=== PATIENT | female | born 1975 | race Caucasian/White ===

== ENCOUNTER 2017-11-24 17:10 | Emergency (ER) | payer BC, SELFPAY ==
[2017-11-24 18:46] VITALS: BP 90/78; PULSE 68; RESP 18; TEMP 36.8; O2SAT 100; BMI 23.4
--- NOTE | 2017-11-24 18:58 | HMH.EDUTC ---
[facility] [place] Clinical Impression: Upper respiratory virus Disposition: Home, Self-Care Condition on Discharge: Good Instructions: DI for Viral Upper Respiratory Infection -- Adult Additional Instructions: * No sign of bacterial infection. Likely viral. Virus can take 7-14 days to run their course * Monitor Temp. Tylenol every 4 hours as needed no more then 5 times a day or 4000mg in 24 hours and/or ibuprofen every 6 hours as needed no more then 3200mg in 24 hours (as long as your primary care doctor has told you that it is ok to take both) for fever/aches/pain. ER if fever no less than 101 despite tylenol and ibuprofen * Encourage fluids, water, gatorade, powerade, pedialyte if infant/toddler/child * warm salt water gargles * warm fluids * sore throat lozenges * sleep elevated * humidifier/vaporizer * flonase 2 sprays each nostril daily but may take 2-3 days to notice improvement with it. * Mucinex D. Ask your pharmacist for this. * * Your throat swab was sent for culture. Those results are typically sent to your primary care. Be sure to follow up in 2-3 days if no improvement so they can review those results and treat if necessary. If you don't have primary care, I recommend you get one but in the mean time, you will have to return to a walk in clinic. IMMEDIATELY for new or worsening symptoms OR no noticeable improvement over the next 48-72 hours. 911 for difficulty breathing or swallowing. Prescriptions: Fluticasone Propionate [Flonase 50mcg nasal spray 16gm] 2 spr NS DAILY #1 bottle Time of Disposition: 19:32 Medical Decision Making Vital Signs: 11/24/17 18:46 Temperature 98.2 F Temperature Source Temporal Artery Scan Pulse Rate [Brachial] 68 Respiratory Rate 18 Blood Pressure [Right Arm] 90/78 Blood Pressure Mean [Right Arm] 82 Blood Pressure Source [Right Arm] Automatic Cuff Blood Pressure Position [Right Arm] Sitting 02 Sat by Pulse Oximetry 100 Oxygen Delivery Method Room Air - Lab Data Lab results reviewed: Yes: I reviewed the patient's lab results. Lab Results 11/24/17 18:44: Influenza Type A Ag Negative, Influenza Type B Ag Negative - William Inquiry Pt receiving controlled substance: No [facility] [place] - General Stated complaint: head congestion Time Seen by Provider: 11/24/17 18:58 Mode of Arrival: Ambulatory Source of Information: Patient Limitations: No Limitations Description of Symptoms (Recalled from Triage Doc. by RN): SEVERE CONGESTION SINCE THIS MORNING HEENT Symptoms (Recalled from RN notes): Yes Resp Symptoms (Recalled from RN notes): No Skin Symptoms (Recalled from RN notes): No MS Symptoms (Recalled from RN notes): No Functional Status (Recalled from RN notes): NA - History of Present Illness Provider Complaint: c/o nasal congestion and sinus pressure starting yesterday. Nyquil last night helped. Daughter w/ same symptoms x 2-3 days. Denies fever, aches, chills. - Related Data Home Medications Medication Instructions Recorded Confirmed Escitalopram Oxalate [Lexapro] 10 mg PO DAILY 11/24/17 11/24/17 Previous Rx's Medication Instructions Recorded Fluticasone Propionate [Flonase 2 spr NS DAILY #1 bottle 11/24/17 50mcg nasal spray 16gm] Allergies Allergy/AdvReac Type Severity Reaction Status Date / Time No Known Allergies Allergy Verified 11/24/17 17:32 - Worker's Comp Is this a Worker's Comp case?: No [facility] History I have reviewed the patient's past medical history: Yes Medical History: Reports:: Anxiety Other Surgeries: Yes: (x3) - *Social History Alcohol Intake: never - Psychiatric History Expresses thoughts of harming self/others: None Suicide Plan Description: No Plan ROS Obtained: Yes Systems reviewed as appropriate & no additional complaints - Constitutional Constitutional: Denies body ache, Denies chills, Denies fatigue, Denies poor appetite - Eyes Eyes: Denies eye discharge, Denies eye pain - ENT Ears, N
[2017-11-24 19:00] LABS: UTC Influenza A Antigen Negative (Negative); UTC Influenza B Antigen Negative (Negative)
== END 2017-11-24 19:39 | disposition home or self-care (01) ==
PROVIDERS: Emergency Provider Nurse Practitioner Family
DX: J06.9 Acute upper respiratory infection, unspecified (principal); F41.9 Anxiety disorder, unspecified; Z79.899 Other long term (current) drug therapy
CPT/HCPCS: 87804; 99202

== ENCOUNTER 2021-05-29 18:51 | Emergency (ER) | payer BC, SELFPAY ==
[2021-05-29 18:51] VITALS: BP 104/67; PULSE 68; RESP 20; TEMP 37.1; O2SAT 99; BMI 24.4
--- NOTE | 2021-05-29 20:33 | HMH.EDUTC ---
[facility] [place] Impression: Photosensitivity dermatitis Disposition: Home, Self-Care Condition on Discharge: Good Instructions: DI for Cold Sores Additional Instructions: Apply the zovirax cream as directed. Take the steroids and valtrex that was called in by Kaylee today. Take the cephalexin antibiotic as prescribed. Follow up with your primary care doctor. GO TO THE ER FOR ANY WORSENING SYMPTOMS OR CONCERNS Prescriptions: cephALEXin [cephALEXin 500mg capsule] 500 mg PO Q6H 10 Days #40 cap Transmission Status: Received by [facility] Acyclovir [Zovirax] 5 gm TP 5XDAY 4 Days #1 tube Transmission Status: Received by [facility] Referrals: Kaylee Chiu PA [Primary Care Provider] - Time of Disposition: 20:54 Medical Decision Making - Medical Records Medical records reviewed: No: I reviewed the patient's medical records. - William Inquiry Pt receiving controlled substance: No Vital Signs: 05/29/21 18:51 05/29/21 21:10 Temperature 98.8 F 98.8 F Temperature Source Oral Pulse Rate 68 Pulse Rate [Left Radial] 68 Respiratory Rate 20 20 Blood Pressure 104/67 L Blood Pressure [Right Arm] 104/67 L Blood Pressure Mean [Right Arm] 79 Blood Pressure Source [Right Arm] Automatic Cuff Blood Pressure Position [Right Arm] Sitting 02 Sat by Pulse Oximetry 99 Oxygen Delivery Method Room Air Room Air Orders (Tests/Meds): ORDERS Category Date Time Status Wound Culture and Gram Stain Stat Micro 05/29/21 20:20 Received [facility] [place] - General Stated complaint: bister on mouth Time Seen by Provider: 05/29/21 20:33 - History of Present Illness Provider Complaint: She reports that [place] the [place]. Since then she has had blisters on her bottom lips. She states they are getting worse instead of better. - Related Data Previous Rx's Medication Instructions Recorded escitalopram oxalate 10 mg tablet 10 mg PO DAILY #90 tab 09/13/20 amoxicillin 500 mg capsule 500 mg PO Q12H 10 Days #20 cap 03/12/21 qgvefhcybyzaofk-pckicxfhwazstyy-QE 5 ml PO Q4-6H PRN 7 Days #118 ml 03/12/21 2 mg-30 mg-10 mg/5 mL oral syrup Acyclovir [Zovirax] 5 gm TP 5XDAY 4 Days #1 tube 05/29/21 cephALEXin [cephALEXin 500mg 500 mg PO Q6H 10 Days #40 cap 05/29/21 capsule] prednisone 20 mg tablet 20 mg PO BID #10 tab 05/29/21 valacyclovir 1 gram tablet 1,000 mg PO BID #14 tab 05/29/21 Allergies Allergy/AdvReac Type Severity Reaction Status Date / Time No Known Allergies Allergy Verified 03/12/21 16:04 [facility] History - Hepatitis A Screen Attestation statement:: This patient has been screened for Hepatitis A risk factors. I have reviewed the patient's past medical history: Yes Medical History: Reports:: Anxiety Other Surgeries: Yes: No Previous Surgery, Amputation: No Fractures: No - Social History Smoking Status: Never smoker Alcohol Intake: never Substance Use Type: denies use Occupational Status: employed Housing: house Household Members: family - Psychiatric History Pschychiatric History:: Reports:: Anxiety Family Hx:: No significant family history ROS Obtained: Yes All systems reviewed & no additional complaints - Constitutional Constitutional: Denies chills, Denies fever(s) - Eyes Eyes: Denies eye discharge - ENT Ears, Nose, Mouth, and Throat: Denies dizziness, Denies otalgia, Denies sore throat - Cardiovascular Cardiovascular: Denies chest pain - Respiratory Respiratory: Denies chest congestion, Denies cough, Denies dyspnea, Reports stridor, Reports wheezing - Gastrointestinal Gastrointestingal: Denies: abdominal pain, diarrhea, nausea, vomiting - Integumentary/Breasts Skin/Breast: Reports as per HPI Physical Exam - General General appearance: alert, in no apparent distress - Head Head exam: atraumatic, normocephalic, normal inspection - Eye Eye exam: Present: normal appearance, PERRL, EOMI - ENT E
[2021-05-29 21:10] VITALS: BP 104/67; PULSE 68; RESP 20; TEMP 37.1; O2SAT 99
== END 2021-05-29 21:11 | disposition home or self-care (01) ==
PROVIDERS: Emergency Provider Nurse Practitioner Family; PCP Physician Assistant
DX: L56.8 Other specified acute skin changes due to ultraviolet radiation (principal); F41.9 Anxiety disorder, unspecified; Z79.899 Other long term (current) drug therapy
CPT/HCPCS: 87070; 87077; 87186; 87205; 99202; G0463

== ENCOUNTER 2023-09-01 20:14 | Observation (INO) | payer BC, SELFPAY ==
[2023-09-01] VITALS (15 sets, daily range): BP systolic 73–114; BP diastolic 32–72; PULSE 59–78; RESP 14–24; TEMP 36.6; O2SAT 96–100; BMI 25.0; BMI 23.8
--- NOTE | 2023-09-01 20:45 | CT_ITS ---
PROCEDURE INFORMATION: Exam: CT Abdomen And Pelvis With Contrast Exam date and time: 09/01/2023 9:38 PM Age: 48 years old Clinical indication: Abdominal pain; Epigastric; Additional info: Epigastric abd pain and tenderness throughout TECHNIQUE: Imaging protocol: Computed tomography of the abdomen and pelvis with contrast. Radiation optimization: All CT scans at this facility use at least one of these dose optimization techniques: automated exposure control; mA and/or kV adjustment per patient size (includes targeted exams where dose is matched to clinical indication); or iterative reconstruction. Contrast material: ISOVUE; Contrast volume: 75 ml; Contrast route: IV; REPORTING DATA: Count of CT and Cardiac NM exams in prior 12 months: This patient has received 0 known CTs and 0 known cardiac nuclear medicine studies in the 12 months prior to the current study. COMPARISON: No relevant prior studies available. FINDINGS: Liver: Normal. No mass. Gallbladder and bile ducts: Normal. No calcified stones. No ductal dilation. Pancreas: Normal. No ductal dilation. Spleen: Normal. No splenomegaly. Adrenal glands: Normal. No mass. Kidneys and ureters: No hydronephrosis. Mild prominence of the right renal pelvis axial 3/49. Stomach and bowel: Moderately dilated fluid-filled cluster of small-bowel loops in the pelvis with transition to small caliber small bowel axial image 3/76-87 with transition to diminutive caliber small-bowel on coronal image 1001/16-18. Trace mesenteric edema coronal image 1001/18. Retained stool in colon. Normal appendix. Appendix: See Stomach and bowel finding. Intraperitoneal space: See Stomach and bowel finding. Vasculature: Unremarkable. No abdominal aortic aneurysm. Lymph nodes: No free air or fluid or adenopathy. Urinary bladder: Unremarkable as visualized. Reproductive: Unremarkable as visualized. Bones/joints: Unremarkable. No acute fracture. Soft tissues: Unremarkable. IMPRESSION: 1. No free air or fluid or adenopathy. 2. Moderately dilated fluid-filled cluster of small-bowel loops in the pelvis with transition to small caliber small bowel axial image 3/76-87 with transition to diminutive caliber small-bowel on coronal image 1001/16-18. Trace mesenteric edema coronal image 1001/18. Findings worrisome for early small-bowel obstruction. Recommend clinical correlation and ongoing follow-up. Small-bowel follow-through may be helpful. 3. Retained stool in colon. Normal appendix. 4. No hydronephrosis. 5. Mild prominence of the right renal pelvis axial .
--- NOTE | 2023-09-01 20:47 | HMH.EDGENADL ---
Discharge Plan Disposition Patient Disposition: Admitted Prescriptions Prescriptions: No Action escitalopram oxalate 10 mg tablet See Rx Instructions .ROUTE .COMPLEX Qty: 90 0RF Dose Instruction: TAKE 1 TABLET BY MOUTH ONCE DAILY Rx Instructions: TAKE 1 TABLET BY MOUTH ONCE DAILY Referrals Follow up/Referrals: Kaylee Chiu PA [Primary Care Provider] - See instructions Clinical Impressions Clinical Impression: Small bowel obstruction, Nausea & vomiting, Abdominal pain Instructions Patient Instructions: DI for Acute Abdominal Pain Discharge ED Provider: Brenna Leonard General Adult HPI General Chief complaint: Abdominal Pain Stated complaint: abd pain Time Seen by Provider: 09/01/23 20:38 Mode of Arrival: Ambulatory Source of Information: Patient Limitations: No Limitations Description of Symptoms (Recalled from ER Triage Doc. by RN): Pt complains of upper abdominal pain for past 2 days, denies any nausea, vomiting or diarrhea. However states 2 weeks she had diarrhea for a week straight with no pain. LBM was today somewhat normal. History of Present Illness HPI narrative: Patient is a 48-year-old female presented today with epigastric and periumbilical abdominal pain. States has been going on for several days. Had a bout of diarrhea 2 weeks ago that lasted for about a week but no symptoms significant improved. Has had normal bowel movements recently just that she had increasing abdominal pain over the last several days which is not going away. She has known history of biliary sludge still has her gallbladder but denies any postprandial abdominal pain or any localization to the right upper quadrant. Denies any urinary or bowel symptoms otherwise. Related Data Previous Rx's Medication Instructions Recorded escitalopram oxalate 10 mg tablet See Rx Instructions .Route 05/30/23 .COMPLEX #90 tabs Allergies Allergy/AdvReac Type Severity Reaction Status Date / Time No Known Allergies Allergy Verified 01/10/23 08:23 [facility] Disclaimer: The information contained in this section may have been updated after the patient was seen, as this information can be updated by other users. Medical History Sciatica without back pain Social History Smoking Status: Never smoker alcohol intake: never substance use type: denies use current occupational status: employed Travel in the last 8 weeks: None household members: family housing: house ROS Obtained: Yes All systems reviewed & no additional complaints except as documented Physical Exam General General appearance: alert Respiratory Respiratory exam: Present normal lung sounds bilaterally; Absent respiratory distress Cardiovascular Cardiovascular exam: Present regular rate Abdominal Exam Abdominal exam: Present other (Diffuse epigastric and periumbilical abdominal pain and tenderness no rebound or guarding) Neurological Exam Neurological exam: Present alert and oriented X3 Medical Decision Making William Inquiry Pt receiving controlled substance: No Vital Signs: 09/01/23 20:14 09/01/23 20:30 09/01/23 20:45 Temperature 97.8 F Temperature Source Oral Pulse Rate 66 63 Pulse Rate [Left] 69 Respiratory Rate 18 18 16 Blood Pressure 86/63 L 99/72 L Blood Pressure [Right Arm] 100/51 L Blood Pressure Mean 66 78 Blood Pressure Mean [Right Arm] 67 Blood Pressure Source [Right Arm] Automatic Cuff Blood Pressure Position [Right Arm] Sitting 02 Sat by Pulse Oximetry 98 97 98 Oxygen Delivery Method Room Air Room Air Room Air 09/01/23 21:01 09/01/23 21:15 09/01/23 21:30 Temperature Temperature Source Pulse Rate 63 63 59 L Pulse Rate [Left] Respiratory Rate Blood Pressure 114/37 L 100/49 L 102/57 L Blood Pressure [Right Arm] Blood Pressure Mean 79 66 72 Blood Press
[2023-09-01 21:11] LABS: Basophils % 0.6 % (0.1-2.0); Eosinophils # 0.2 K/mm3 (0.0-0.4); Eosinophils % 3.7 % (0.1-12.0); Hematocrit 35.5 % (37.0-47.0); Hemoglobin 12.5 g/dL (12.2-16.2); Lymphocytes # 1.2 K/mm3 (0.7-4.5); Lymphocytes % 26.1 % (10-50); Mean Corpuscular HGB Conc 35.3 g/dL (31.8-35.4); Mean Corpuscular Hemoglobin 32.7 pg (27.0-31.2); Mean Corpuscular Volume 92.7 fl (81-99); Mean Platelet Volume 8.1 fl (7.4-10.4); Monocytes # 0.3 K/mm3 (0.1-1.0); Monocytes % 5.5 % (1.7-9.3); Neutrophils % 64.1 % (37.0-80.0); Platelet Count 340 K/mm3 (142-424); Red Blood Count 3.83 M/mm3 (4.20-5.40); Red Cell Distribution Width 12.5 % (11.5-17.5); White Blood Count 4.7 K/mm3 (4.8-10.8)
[2023-09-01 21:13] LABS: Chloride 104 mmol/L (98-107); Potassium 3.6 mmoL/L (3.5-5.1); Sodium 136 mmol/L (136-145)
[2023-09-01 21:16] LABS: Alanine Aminotransferase 19 U/L (12-78); Albumin Level 4.2 g/dl (3.5-5.0); Albumin/Globulin Ratio 1.5 (1.1-1.8); Alkaline Phosphatase 40 U/L (38-126); Anion Gap 7.6 mEq/L (5-15); Bilirubin,Total 0.3 mg/dl (0.2-1.3); Blood Urea Nitrogen 11 mg/dl (7-17); Calcium 8.4 mg/dl (8.4-10.2); Carbon Dioxide 28 mmol/L (22.0-30.0); Creatinine Clearance Estimated 104 mL/min (50-200); Estimated Glomerular Filt Rate 106 ml/min (>60); GFR (African American) 129 ML/MIN (>60); Globulin 2.8 g/dL (1.3-3.2); Glucose 94 mg/dl (74-100); Lipase 90 U/L (23-300)
[2023-09-01 21:39] LABS: Aspartate Amino Transferase 27 U/L (14-36)
--- NOTE | 2023-09-01 22:31 | PC.NURSE ---
notified household personal assistant of admission
--- NOTE | 2023-09-01 23:20 | PC.NURSE ---
report received from Van SRIVASTAVA
--- NOTE | 2023-09-01 23:38 | PC.NURSE ---
Pt arrived on unit via wheelchair at this time.
--- NOTE | 2023-09-02 01:17 | EXP.HP ---
History of Present Illness *Admission Date: 09/02/23 *Reason for visit:: SBO *History of present illness: 48 year old female presented to the ED for c/o abd pain for the past two days. Pain is located around the umbilicus area. She reports diarrhea for the past two months. PMHX of IBS, anxiety, 3 C sections, and a hysterectomy. She reports felling constipation tonight. She has seen GI providers in the past for IBS but has not seen any recently. The ED work up reviewed by me reveals unremarkable lab work up. I reviewed her CT of the abd and it reveals dilated small bowel loops that are fluid filled, constipation, and the start of a small bowel obstruction. The pt is currently not vomiting. She reports that she is passing gas. The ED physician consulted the hospitalist team for admission. I admitted the pt to the medical surgical floor. She will remain NPO, receive gentle IV hydration, and have a general surgery consult for the morning. [facility] Disclaimer: The information contained in this section may have been updated after the patient was seen, as this information can be updated by other users. Medical History Sciatica without back pain Social History Smoking Status: Never smoker alcohol intake: never substance use type: denies use current occupational status: employed Travel in the last 8 weeks: None household members: family housing: house Review of Systems *Cardiovascular Cardiovascular: Reports system reviewed and no additional complaints, except as documented *Respiratory Respiratory: Reports system reviewed and no additional complaints, except as documented *Gastrointestinal Gastrointestinal: Reports as per HPI and Reports abdominal pain *Genitourinary Genitourinary: Reports system reviewed and no additional complaints, except as documented *Musculoskeletal Musculoskeletal: Reports system reviewed and no additional complaints, except as documented *Neurologic Neurologic: Reports system reviewed and no additional complaints, except as documented Meds Home Medications and Allergies Home Medications Medication Instructions Recorded Confirmed Type escitalopram oxalate 10 mg tablet 10 mg PO DAILY 09/02/23 09/02/23 History New Prescriptions to Start Prescriptions: Allergies Allergy/AdvReac Type Severity Reaction Status Date / Time No Known Allergies Allergy Verified 01/10/23 08:23 Exam Data for Last 24 hours Vital signs and Labs for Last 24 Hours: Temp Pulse Resp BP Pulse Ox O2 Del Method 97.9 F 60 24 95/67 L 96 Room Air 09/01/23 23:45 09/01/23 23:45 09/01/23 23:45 09/01/23 23:45 09/01/23 23:57 09/01/23 23:57 Laboratory Results - last 24 hr 09/01/23 21:00: WBC 4.7 L, RBC 3.83 L, Hgb 12.5, Hct 35.5 L, MCV 92.7, MCH 32.7 H, MCHC 35.3, RDW 12.5, Plt Count 340, MPV 8.1, Neut % (Auto) 64.1, Lymph % (Auto) 26.1, [place] % (Auto) 5.5, Eos % (Auto) 3.7, Baso % (Auto) 0.6, Neut # (Auto) 3.0, Lymph # (Auto) 1.2, [place] # (Auto) 0.3, Eos # (Auto) 0.2, Baso # (Auto) 0.0, Sodium 136, Potassium 3.6, Chloride 104, Carbon Dioxide 28, Anion Gap 7.6, BUN 11, Creatinine 0.60, Estimated Creat Clear 104, Estimated GFR 106, Est GFR ( Amer) 129, Glucose 94, Calcium 8.4, Total Bilirubin 0.3, AST 27, ALT 19, Alkaline Phosphatase 40, Total Protein 7.0, Albumin 4.2, Globulin 2.8, Albumin/Globulin Ratio 1.5, Lipase 90 I & O for Last 24 hours: Intake & Output 08/30/23 08/31/23 09/01/23 09/02/23 23:59 23:59 23:59 23:59 Weight 55.48 kg Constitutional Constitutional: no acute distress *Routine HEENT Exam Head: Present normocephalic Eye: Present EOMI ENT: Present mucous membranes moist *Routine Neck Exam Neck: Present full ROM *Routine Respiratory Exam Respiratory: Present CTA bilaterally and symmetric chest movement *Routine Cardiovascular Exam Cardiovascular: Present RRR *Ro
[2023-09-02 01:48] LABS: Microscopic, Urine URINE MICROSCOPIC (MICROSCOPIC)
[2023-09-02 02:10] LABS: Appearance,Urine CLEAR (Clear); Bilirubin,Urine Negative (Negative); Blood, Urine TRACE-I (Negative); Color,Urine YELLOW (Yellow); Glucose,Urine (UA) Negative (Negative); Ketones,Urine TRACE (Negative); Leukocyte Esterase,Urine Negative (Negative); Nitrate,Urine Negative (Negative); PH,Urine 7.5 (5.0-8.5); Protein,Urine Negative (Negative); Specific Gravity, Urine 1.015 (1.005-1.030); Urobilinogen,Urine 0.2 EU/dl (0.2)
[2023-09-02 02:50] LABS: Bacteria,Urine Trace /lpf; RBC,Urine Occasional #/hpf (0-3); WBC,Urine Occasional #/hpf (0-3)
[2023-09-02 04:00] VITALS: BP 91/50; PULSE 70; RESP 16; TEMP 36.6; O2SAT 96
--- NOTE | 2023-09-02 04:01 | PC.NURSE ---
Pt resting in bed for reassessment, pt rates pain 3/10, denies any intervention. lung sounds clear throughout bilaterally. bowel sounds remain hypoactive. pt has rested comfortably through the shift. she has ambulated to bathroom independently, Iv is patent, LR remains infusing at 100ml/hr. pt denies any needs at this time. Call sanchez in reach.
[2023-09-02 06:44] LABS: Basophils % 0.7 % (0.1-2.0); Eosinophils # 0.1 K/mm3 (0.0-0.4); Eosinophils % 3.1 % (0.1-12.0); Hematocrit 35.4 % (37.0-47.0); Hemoglobin 12.4 g/dL (12.2-16.2); Lymphocytes # 1.5 K/mm3 (0.7-4.5); Lymphocytes % 36.8 % (10-50); Mean Corpuscular Hemoglobin 32.7 pg (27.0-31.2); Mean Corpuscular Volume 93.4 fl (81-99); Mean Platelet Volume 7.7 fl (7.4-10.4); Monocytes # 0.2 K/mm3 (0.1-1.0); Monocytes % 5.8 % (1.7-9.3); Neutrophils # 2.2 K/mm3 (1.8-7.8); Neutrophils % 53.6 % (37.0-80.0); Platelet Count 323 K/mm3 (142-424); Red Blood Count 3.79 M/mm3 (4.20-5.40); Red Cell Distribution Width 12.6 % (11.5-17.5); White Blood Count 4.2 K/mm3 (4.8-10.8)
[2023-09-02 06:51] LABS: Chloride 105 mmol/L (98-107); Potassium 3.5 mmoL/L (3.5-5.1); Sodium 136 mmol/L (136-145)
[2023-09-02 06:54] LABS: Anion Gap 7.5 mEq/L (5-15); Blood Urea Nitrogen 7 mg/dl (7-17); Calcium 8.2 mg/dl (8.4-10.2); Carbon Dioxide 27 mmol/L (22.0-30.0); Creatinine Clearance Estimated 99 mL/min (50-200); Estimated Glomerular Filt Rate 106 ml/min (>60); GFR (African American) 129 ML/MIN (>60); Glucose 92 mg/dl (74-100)
[2023-09-02 08:00] VITALS: BP 129/75; PULSE 51; RESP 16; TEMP 36.9; O2SAT 98
[2023-09-02 09:30] VITALS: BP 82/57; PULSE 74; RESP 20; TEMP 37; O2SAT 96
--- NOTE | 2023-09-02 10:05 | EXP.SURG.CON ---
History of Present Illness *Admission Date: 09/02/23 *Reason for visit:: Possible small bowel obstruction *History of present illness: Asked to see this patient for possible bowel obstruction. She is a pleasant 48-year-old female with prior history of IBS, anxiety, prior , prior hysterectomy. She has previously seen gastroenterology providers for her symptoms of IBS. She presented to the emergency department overnight with 2-day history of sensation of constipation and abdominal pain. Location of pain is in the mid upper abdomen. Evaluation in the emergency department included CT scan which revealed moderately dilated fluid-filled cluster of small bowel loops in the pelvis with transition to small caliber small bowel. . . Trace mesenteric edema. Findings worrisome for early small bowel obstruction. Patient denies any vomiting. About 2 weeks ago she had diarrhea and multiple loose stools persisting for about 1 week. She did have some similar abdominal discomfort at that time. Given the reading of the CT scan she was admitted for inpatient management and surgical consultation was obtained. At this point she states that she is hungry. Denies nausea. She has only some minimal abdominal discomfort. [facility] Disclaimer: The information contained in this section may have been updated after the patient was seen, as this information can be updated by other users. Medical History Sciatica without back pain Social History Smoking Status: Never smoker alcohol intake: never substance use type: denies use current occupational status: employed Travel in the last 8 weeks: None household members: family housing: house Review of Systems *Neurologic Neurologic: Reports system reviewed and no additional complaints, except as documented Meds Home Medications and Allergies Home Medications Medication Instructions Recorded Confirmed Type escitalopram oxalate 10 mg tablet 10 mg PO DAILY 09/02/23 09/02/23 History New Prescriptions to Start Prescriptions: Allergies Allergy/AdvReac Type Severity Reaction Status Date / Time No Known Allergies Allergy Verified 01/10/23 08:23 Exam (Inpt) Vital signs and Labs for Last 24 Hours: Temp Pulse Resp BP Pulse Ox O2 Del Method 98.6 F 74 20 82/57 L 96 Room Air 09/02/23 09:30 09/02/23 09:30 09/02/23 09:30 09/02/23 09:30 09/02/23 09:30 09/02/23 09:30 Laboratory Results - last 24 hr 09/01/23 21:00: WBC 4.7 L, RBC 3.83 L, Hgb 12.5, Hct 35.5 L, MCV 92.7, MCH 32.7 H, MCHC 35.3, RDW 12.5, Plt Count 340, MPV 8.1, Neut % (Auto) 64.1, Lymph % (Auto) 26.1, [place] % (Auto) 5.5, Eos % (Auto) 3.7, Baso % (Auto) 0.6, Neut # (Auto) 3.0, Lymph # (Auto) 1.2, [place] # (Auto) 0.3, Eos # (Auto) 0.2, Baso # (Auto) 0.0, Sodium 136, Potassium 3.6, Chloride 104, Carbon Dioxide 28, Anion Gap 7.6, BUN 11, Creatinine 0.60, Estimated Creat Clear 104, Estimated GFR 106, Est GFR ( Amer) 129, Glucose 94, Calcium 8.4, Total Bilirubin 0.3, AST 27, ALT 19, Alkaline Phosphatase 40, Total Protein 7.0, Albumin 4.2, Globulin 2.8, Albumin/Globulin Ratio 1.5, Lipase 90 09/02/23 01:25: Urine Color Yellow, Urine Appearance Clear, Urine pH 7.5, Ur Specific [place] 1.015, Urine Protein Negative, Urine Glucose (UA) Negative, Urine Ketones Trace, Urine Blood Trace-i, Urine Nitrate Negative, Urine Bilirubin Negative, Urine Urobilinogen 0.2, Ur Leukocyte Esterase Negative, Urine RBC Occasional, Urine WBC Occasional, Ur Squamous Epith Cells 5-10, Urine Bacteria Trace 09/02/23 06:22: WBC 4.2 L, RBC 3.79 L, Hgb 12.4, Hct 35.4 L, MCV 93.4, MCH 32.7 H, MCHC 35.0, RDW 12.6, Plt Count 323, MPV 7.7, Neut % (Auto) 53.6, Lymph % (Auto) 36.8, [place] % (Auto) 5.8, Eos % (Auto) 3.1, Baso % (Auto) 0.7, Neut # (Auto) 2.2, Lymph # (Auto) 1.5, [place] # (Auto) 0.2, Eos # (Auto) 0.1, Baso # (Auto) 0.0, Sodium 136, Pot
[2023-09-02 16:00] VITALS: BP 95/60; PULSE 67; RESP 18; TEMP 36.8; O2SAT 95
--- NOTE | 2023-09-02 18:45 | PC.NURSE ---
Pt. has done well this shift, rested most of the day. Pt. tolerated clear liquids well, bowel sounds remain hypoactive. Pt. reports abd pain at 1-2/10 throughout shift. Pt. denies needs.
[2023-09-02 20:40] VITALS: BP 99/57; PULSE 71; RESP 17; TEMP 36.5; O2SAT 98
--- NOTE | 2023-09-02 22:55 | PC.NURSE ---
Spoke with Bakari from [facility] pharmacy to verify patient's home medication. Patient's home medication is Escitalopram 10mg. Tablet is white, round, scored and has P10 on it. Bakari okay'd to give patient's home medication tonight. Erasto Baires RN was witnessed to phone verification of medication. Patient's home medication is now locked in [facility] for inpatient pharmacy.
--- NOTE | 2023-09-02 23:14 | P.PN_ITS ---
Subjective *Date: 09/02/23 *Time: 23:14 Exam Data for Last 24 hours Vital signs and Labs for Last 24 Hours: Temp Pulse Resp BP Pulse Ox O2 Del Method 97.7 F 71 17 99/57 L 98 Room Air 09/02/23 20:40 09/02/23 20:40 09/02/23 20:40 09/02/23 20:40 09/02/23 20:40 09/02/23 23:05 Laboratory Results - last 24 hr 09/02/23 01:25: Urine Color Yellow, Urine Appearance Clear, Urine pH 7.5, Ur Specific [place] 1.015, Urine Protein Negative, Urine Glucose (UA) Negative, Urine Ketones Trace, Urine Blood Trace-i, Urine Nitrate Negative, Urine Bilirubin Negative, Urine Urobilinogen 0.2, Ur Leukocyte Esterase Negative, Urine RBC Occasional, Urine WBC Occasional, Ur Squamous Epith Cells 5-10, Urine Bacteria Trace 09/02/23 06:22: WBC 4.2 L, RBC 3.79 L, Hgb 12.4, Hct 35.4 L, MCV 93.4, MCH 32.7 H, MCHC 35.0, RDW 12.6, Plt Count 323, MPV 7.7, Neut % (Auto) 53.6, Lymph % (Auto) 36.8, [place] % (Auto) 5.8, Eos % (Auto) 3.1, Baso % (Auto) 0.7, Neut # (Auto) 2.2, Lymph # (Auto) 1.5, [place] # (Auto) 0.2, Eos # (Auto) 0.1, Baso # (Auto) 0.0, Sodium 136, Potassium 3.5, Chloride 105, Carbon Dioxide 27, Anion Gap 7.5, BUN 7 D, Creatinine 0.60, Estimated Creat Clear 99, Estimated GFR 106, Est GFR ( Amer) 129, Glucose 92, Calcium 8.2 L I & O for Last 24 hours: Intake & Output 08/30/23 08/31/23 09/01/23 09/02/23 23:59 23:59 23:59 23:59 Output Total 2500 / 2500 Balance -2500 / -2500 Weight 55.48 kg
[2023-09-03 04:23] VITALS: BP 93/44; PULSE 74; RESP 15; TEMP 36.7; O2SAT 97
--- NOTE | 2023-09-03 04:24 | PC.NURSE ---
Patient remains alert and oriented x4. Lung sounds are clear throughout. Patient bowel sounds remain hypoactive. Patient denies any pain.
--- NOTE | 2023-09-03 06:00 | FL_ITS ---
FINAL REPORT CLINICAL HISTORY: . ft 0:26 dap 709.48 FINDINGS: SMALL BOWEL FOLLOW THROUGH HISTORY: . Diffuse abdominal pain. PROCEDURE: The patient ingested barium. Spot and overhead films were obtained. FINDINGS: The aeronautical engineering professor film is unremarkable. The transit time to the colon is normal. The mucosal fold pattern is normal. Spot images of the terminal ileum are unremarkable. IMPRESSION: Normal small bowel follow-through. Reviewed, Interpreted and Dictated by Bhaskar Alberts III, MD Transcribed by OMAR Stahl Authenticated and . [facility]
--- NOTE | 2023-09-03 07:03 | PC.NURSE ---
pt off unit at this time with radiology.
--- NOTE | 2023-09-03 08:23 | PC.NURSE ---
back on floor at this time
--- NOTE | 2023-09-03 08:28 | EXP.SURG.PN ---
Subjective Narrative: The patient is currently in radiology undergoing small bowel follow-through. No new issues per nursing. Exam Data for Last 24 hours Vital signs and Labs for Last 24 Hours: Temp Pulse Resp BP Pulse Ox O2 Del Method 98.0 F 74 15 93/44 L 97 Room Air 09/03/23 04:23 09/03/23 04:23 09/03/23 04:23 09/03/23 04:23 09/03/23 04:23 09/03/23 06:02 I & O for Last 24 hours: Intake & Output 08/31/23 09/01/23 09/02/23 09/03/23 11:59 11:59 11:59 11:59 Intake Total 2298 / 2298 Output Total 200 / 200 2300 / 2300 Balance -200 / -200 -2 / -2 Weight 122 lb 5 oz Constitutional Comments: Patient is currently in radiology undergoing small bowel follow-through; therefore, examination deferred. Progress Note: A&P Assessment and plan (1) Small bowel obstruction: Status: Acute Assessment and plan: Follow-up small bowel follow-through
[2023-09-03 08:30] VITALS: BP 101/55; PULSE 60; RESP 16; TEMP 36.4; O2SAT 98
--- NOTE | 2023-09-03 10:17 | PC.NURSE ---
Received report from OB nurse emerald SRIVASTAVA
--- NOTE | 2023-09-03 11:04 | PC.NURSE ---
Pt stated that she is having clear like water bowel movements when she gets up to to go the bathroom. She states that it just runs out.
--- NOTE | 2023-09-03 11:33 | PC.NURSE ---
Checked on pt she stated that she is having the clear liquid stool about every 10 mins and along with urination. She states that she does not need anything at this time, and denies any pain at this time.
--- NOTE | 2023-09-03 12:23 | PC.NURSE ---
Called Dietary for clear liquids diet
--- NOTE | 2023-09-03 12:24 | PC.NURSE ---
Pt is fine in room with no complaints. I gave her ice water.
--- NOTE | 2023-09-03 14:27 | EXP.DC.SUM ---
General Admission date:: 09/01/23 Discharge date: 09/03/23 HPI HPI HPI: Asked to see this patient for possible bowel obstruction. She is a pleasant 48-year-old female with prior history of IBS, anxiety, prior , prior hysterectomy. She has previously seen gastroenterology providers for her symptoms of IBS. She presented to the emergency department overnight with 2-day history of sensation of constipation and abdominal pain. Location of pain is in the mid upper abdomen. Evaluation in the emergency department included CT scan which revealed moderately dilated fluid-filled cluster of small bowel loops in the pelvis with transition to small caliber small bowel. . . Trace mesenteric edema. Findings worrisome for early small bowel obstruction. Patient denies any vomiting. About 2 weeks ago she had diarrhea and multiple loose stools persisting for about 1 week. She did have some similar abdominal discomfort at that time. Given the reading of the CT scan she was admitted for inpatient management and surgical consultation was obtained. At this point she states that she is hungry. Denies nausea. She has only some minimal abdominal discomfort. Hospital Course Hospital Course Hospital Course: Patient was seen and evaluated at the bedside on the day of discharge. Patient is stable for discharge. Patient wishes to be discharged. All patient questions were answered and patient was given time to ask questions. Patient was discharged in stable condition. SBO has resolved, SBFT shows resulted as normal bowel study, patient is tolerating diet, having BMs and wishes to be discharged, Patient discharged in stable condition and recommended to f/u with PCP and GI as OP, verbalized understanding Exam Data for Last 24 hours Vital signs and Labs for Last 24 Hours: Temp Pulse Resp BP Pulse Ox O2 Del Method 97.5 F L 60 16 101/55 L 98 Room Air 09/03/23 08:30 09/03/23 08:30 09/03/23 08:30 09/03/23 08:30 09/03/23 08:30 09/03/23 13:00 I & O for Last 24 hours: Intake & Output 08/31/23 09/01/23 09/02/23 09/03/23 23:59 23:59 23:59 23:59 Intake Total 2298 / 2298 Output Total 2500 / 2500 700 / 700 Balance -202 / -202 -700 / -700 Weight 55.48 kg Constitutional Constitutional: no acute distress *Routine HEENT Exam Head: Present normocephalic Eye: Present EOMI and PERRL ENT: Present mucous membranes moist *Routine Neck Exam Neck: Present supple; Absent lymphadenopathy *Routine Respiratory Exam Respiratory: Present CTA bilaterally *Routine Cardiovascular Exam Cardiovascular: Present RRR *Routine Abdominal Exam Abdominal: Present soft and normoactive bowel sounds; Absent tenderness *Routine Extremities Exam Extremities: Absent cyanosis, clubbing or edema *Routine Skin Exam Skin: Present warm; Absent rash *Routine Neurological Exam Neurological: Present alert and oriented X3 DS: Diagnosis Discharge Diagnosis (1) Small bowel obstruction: Status: Acute Code(s): K56.609 - Unspecified intestinal obstruction, unspecified as to partial versus complete obstruction (2) Abdominal pain: Status: Acute Code(s): R10.9 - Unspecified abdominal pain (3) History of IBS: Status: Acute Code(s): Z87.19 - Personal history of other diseases of the digestive system (4) Anxiety: Status: Acute Code(s): F41.9 - Anxiety disorder, unspecified Meds Home Medications and Allergies Home Medications Medication Instructions Recorded Confirmed Type escitalopram oxalate 10 mg tablet 10 mg PO DAILY 09/02/23 09/02/23 History New Prescriptions to Start Prescriptions: Allergies Allergy/AdvReac Type Severity Reaction Status Date / Time No Known Allergies Allergy Verified 01/10/23 08:23 Discharge Plan Disposition Patient Disposition: Home, Self-Care Condition: Good Follow up Plan Follow up with: Bhaskar Valdez MD [Staff Physician] - 1 week Aram
--- NOTE | 2023-09-03 16:12 | PC.NURSE ---
1505 Discharge education provided to pt at this time, questions encouraged and answered. Pt aware of scheduled follow up appointments.
== END 2023-09-03 15:05 | disposition home or self-care (01) ==
LOC: ER 22:34 → OB 23:48
PROVIDERS: Nurse Practitioner Critical Care Medicine; Admitting Provider Internal Medicine Adolescent Medicine; Emergency Provider Student in an Organized Health Care Education/Training Program; PCP Physician Assistant; Visit Provider Internal Medicine Adolescent Medicine
DX: K56.609 Unspecified intestinal obstruction, unspecified as to partial versus complete obstruction; R10.9 Unspecified abdominal pain; Z87.19 Personal history of other diseases of the digestive system; F41.9 Anxiety disorder, unspecified
CPT/HCPCS: 36415; 74177; 74250; 80048; 80053; 81001; 83690; 85025; 99285; G0378; J0131; J2405; Q9967

== ENCOUNTER 2024-01-29 16:00 | Outpatient (RCR) | payer BC, SELFPAY | END 2024-01-29 17:20 | disposition home or self-care (01) | LOC: PT 16:00 | PROVIDERS: Visit Provider Physician Assistant | DX: M53.3 Sacrococcygeal disorders, not elsewhere classified (principal); M13.88 Other specified arthritis, other site; M25.552 Pain in left hip | CPT/HCPCS: 97110; 97163; 97530 ==

== ENCOUNTER 2024-04-23 09:54 | Outpatient (CLI) | payer BC, SELFPAY ==
[2024-04-26 14:00] LABS: Albumin 3.6 g/dL (2.9-4.4); Alpha-1-Globulin 0.2 g/dL (0.0-0.4); Alpha-2-Globulin 0.4 g/dL (0.4-1.0); Gamma Globulin 0.9 g/dL (0.4-1.8)
[2024-04-27 12:15] LABS: Albumin, U 33.9 % (.); Alpha-1-Globulin, U 2.7 % (.); Alpha-2-Globulin, U 27.7 % (.); Beta Globulin, U 24.4 % (.); Gamma Globulin, U 11.3 % (.); M-Spike, % Not Observed % (Not Observed); Protein,Total,Urine 10.1 mg/dL (Not Estab.)
[2024-05-15 10:41] LABS: PDF SCANNED IMAGE
[2024-07-05 12:59] LABS: PDF: SCANNED IMAGE
== END 2024-04-23 23:59 | disposition home or self-care (01) ==
LOC: LAB 09:55
PROVIDERS: PCP Physician Assistant; Visit Provider Orthopaedic Surgery
DX: M54.2 Cervicalgia (principal)
CPT/HCPCS: 36415; 84155; 84156; 84165; 84166

== ENCOUNTER 2025-01-05 14:52 | Outpatient (CLI) | payer BC, SELFPAY ==
[2025-01-06 13:32] LABS: Coronavirus 19, PCR Not Detected (NotDetected); Human Rhinovirus Not Detected (NotDetected); Influenza B, PCR Not Detected (NotDetected); Respiratory Syncytial Virus Not Detected (NotDetected)
[2025-01-06 18:02] LABS: Influenza A, PCR Detected (NotDetected)
== END 2025-01-05 23:59 | disposition home or self-care (01) ==
LOC: LAB.DROPOF 01-10 14:52
PROVIDERS: PCP Physician Assistant; Visit Provider Nurse Practitioner
DX: B34.9 Viral infection, unspecified (principal); Z20.828 Contact with and (suspected) exposure to other viral communicable diseases
CPT/HCPCS: 87631